=== PATIENT | female | born 1960 | race Caucasian/White ===

== ENCOUNTER 2025-03-08 11:36 | Outpatient (CLI) | payer BC | END 2025-03-08 11:37 | disposition home or self-care (01) | LOC: BICMAMMO 11:36 | PROVIDERS: ATTEND Family Medicine | DX: M81.0 Age-related osteoporosis without current pathological fracture (principal); M85.89 Other specified disorders of bone density and structure, multiple sites | CPT/HCPCS: 77080 ==